=== PATIENT | male | born 1950 | race Two or more races ===

== ENCOUNTER → 2017-09-15 | Outpatient (CLI) | payer OTHER ==
[~2017-09-15] MED LIST: GADOBUTROL 10 ML VIAL IVP ONE
== END ==
LOC: FIMAGING 06:14
DX: R97.20 Elevated prostate specific antigen [PSA] (principal); R93.8 Abnormal findings on diagnostic imaging of other specified body structures; R93.41 Abnormal radiologic findings on diagnostic imaging of renal pelvis, ureter, or bladder; K57.30 Diverticulosis of large intestine without perforation or abscess without bleeding; Z80.42 Family history of malignant neoplasm of prostate
CPT/HCPCS: 72197; 76377; A9585; 82565-PO